=== PATIENT | male | born 1970 | race Caucasian/White ===

== ENCOUNTER 2021-06-05 11:46 | Inpatient (IN) | payer BC, OTHER ==
[2021-06-05] MEDS ORDERED: LORazepam 2 MG/ML SDV VIAL ONE (11:59)
[2021-06-05] MEDS ORDERED: DEXTROSE 50%-WATER 25 GM/50 ML DISP.SYRIN ONE (12:03)
[2021-06-05] MEDS ORDERED: ACETAMINOPHEN INJECTION 100 ML IVPB ONE (12:10)
[2021-06-05] MEDS ORDERED: NOREPINEPHRINE BITARTRATE 4 MG/4 ML ML IV ONE (12:11)
[2021-06-05 12:12] VITALS: BMI 28.0
[2021-06-05] MEDS ORDERED: PROPOFOL 1,000,000 MCG/100 ML VIAL ONE (12:13)
[2021-06-05] MEDS ORDERED: CALCIUM CHLORIDE 1 GM/10 ML *DISP.SYRIN ONE (12:15)
[2021-06-05] MEDS: LORazepam 2 MG/ML SDV VIAL IVPUSH ONE ×2 (12:20→15:12)
[2021-06-05] MEDS ORDERED: VANCOMYCIN 1 GM in D5W (PRE-DOCKED) 1,000 MG/250 ML IVPB ONE (12:31)
[2021-06-05] MEDS ORDERED: VANCOMYCIN 1 GRAM (PRE-DOCKED) 1,000 MG/250 ML BAG IVPB ONE (12:31)
[2021-06-05] MEDS ORDERED: PIPERACILLIN/TAZOB 4.5 GM 4.5 GM/100 ML BAG IVPB ONE (12:31)
[2021-06-05] MEDS ORDERED: PIPERACILLIN/TAZOB 4.5 GM 4.5 GM in DEXTROSE 5%-WATER 100 ML IVPB ONE (12:32)
[2021-06-05 12:37] LABS: VENOUS BASE EXCESS -19.7 mmol/L (-2-2); VENOUS O2 SATURATION 94.7 % (70-80); VENOUS PCO2 61.8 mmHg (38-52)
[2021-06-05 12:42] LABS: VENOUS PH 6.933 (7.310-7.410)
[2021-06-05] MEDS ORDERED: SODIUM BICARBONATE 8.4% - 50 ML ONE (12:43)
[2021-06-05 12:52] LABS: URINE APPEARANCE CLOUDY; URINE BILIRUBIN NEGATIVE (NEGATIVE); URINE COLOR YELLOW; URINE GLUCOSE (UA) TRACE (NEGATIVE); URINE KETONE TRACE (NEGATIVE); URINE LEUK ESTERASE NEGATIVE (NEGATIVE); URINE NITRITE NEGATIVE (NEGATIVE); URINE PROTEIN TRACE (NEGATIVE); URINE UROBILINOGEN 0.2 mg/dL (0.2-1.0)
[2021-06-05 13:01] LABS: HEMATOCRIT 33.6 % (35.4-49); HEMOGLOBIN 11.3 GM/dL (11.7-16.9); MCH 32.3 pg (25.7-33.7); MCHC 33.7 g/dl (32.0-35.9); MEAN CELL VOLUME 95.9 fl (80-96); MEAN PLT VOLUME 8.4 fl (7.5-11.1); PLATELET COUNT 122 10^3/uL (134-434); RBC 3.51 M/mm3 (4.00-5.60); RDW 13.9 % (11.9-15.9); WHITE BLOOD COUNT 5.5 K/mm3 (4.0-10.0)
[2021-06-05] MEDS ORDERED: VASOPRESSIN 20 UNITS/ML VIAL IV ONE (13:08)
[2021-06-05 13:10] LABS: URINE BARBITURATES NEGATIVE (NEGATIVE); URINE BENZODIAZEPINES NEGATIVE (NEGATIVE)
[2021-06-05 13:10] LABS: INR 1.13 (0.83-1.09); PROTHROMBIN TIME (PATIENT) 13.6 SEC (9.7-13.0)
[2021-06-05 13:11] LABS: METHADONE, UR NEGATIVE (NEGATIVE); OPIATES, URI NEGATIVE (NEGATIVE); PHENCYCLIDINE,URINE NEGATIVE (NEGATIVE); URINE AMPHETAMINES NEGATIVE (NEGATIVE)
[2021-06-05 13:12] LABS: COCAINE, UR POSITIVE (NEGATIVE)
[2021-06-05 13:12] LABS: ACTIVATED PTT 31.2 SECONDS (25.2-36.5)
[2021-06-05] MEDS ORDERED: VASOPRESSIN 40 UNITS in SODIUM CHLORIDE 98 ML IVPB SCH (13:15)
[2021-06-05 13:20] LABS: CHLORIDE 101 mmol/L (98-107); SODIUM 138 mmol/L (136-145)
[2021-06-05 13:22] LABS: ALBUMIN 2.9 g/dl (3.4-5.0); ANION GAP 18 MMOL/L (8-16); CALCIUM 9.6 mg/dL (8.5-10.1); CO2 20 mmol/L (21-32)
[2021-06-05 13:23] LABS: MAGNESIUM 3.2 mg/dL (1.8-2.4)
[2021-06-05 13:25] LABS: CREATININE 2.4 mg/dL (0.55-1.3); SGOT/AST 80 U/L (15-37); SGPT/ALT 89 U/L (13-61)
[2021-06-05 13:26] LABS: PHOSPHOROUS 6.1 mg/dL (2.5-4.9)
[2021-06-05 13:27] LABS: BILIRUBIN,TOTAL 0.3 mg/dL (0.2-1); TOT PROT 4.9 g/dl (6.4-8.2)
[2021-06-05 13:28] LABS: ALK PHOS 56 U/L (45-117)
[2021-06-05] MEDS ORDERED: NOREPINEPHRINE BITARTRATE 8,000 MCG/500 ML BAG IVPB SCH (13:30)
[2021-06-05 13:47] LABS: LACTIC ACID 15.4 mmol/L (0.4-2.0)
[2021-06-05] MEDS: NOREPINEPHRINE BITARTRATE 16,000 MCG in SODIUM CHLORIDE 484 ML IV SCH (14:00)
[2021-06-05] MEDS: VASOPRESSIN 40 UNITS in SODIUM CHLORIDE 98 ML IVPB SCH (14:00)
[2021-06-05 14:01] LABS: GLUCOSE,RANDOM 479 mg/dL (74-106)
[2021-06-05 17:38] LABS: BLOOD UREA NITROGEN 16.1 mg/dL (7-18); CALCIUM 8.5 mg/dL (8.5-10.1)
[2021-06-05 17:38] LABS: ARTERIAL BLOOD GAS BASE EXCESS -8.8 mmol/L (-2-2)
[2021-06-05 17:39] LABS: MAGNESIUM 3.2 mg/dL (1.8-2.4)
[2021-06-05 17:42] LABS: CREATININE 2.2 mg/dL (0.55-1.3); PHOSPHOROUS 4.3 mg/dL (2.5-4.9)
[2021-06-05 17:42] LABS: ARTERIAL BLOOD GAS pH 7.188 (7.350-7.450)
[2021-06-05 17:43] LABS: ALLENS TEST POSITIVE
[2021-06-05 17:44] LABS: VENT MODE AC; VENT RATE 16
[2021-06-05 17:47] LABS: LACTIC ACID 4.2 mmol/L (0.4-2.0)
[2021-06-05] MEDS: AMPICILLIN NA/SULBACTAM NA 1.5 GM in SODIUM CHLORIDE 100 ML IVPB SCH (19:06)
[2021-06-05] MEDS: HEPARIN NA (PORCINE) 5,000 UNITS/ML 1ML VIAL SQ SCH (22:57)
[2021-06-06] MEDS: AMPICILLIN NA/SULBACTAM NA 1.5 GM in SODIUM CHLORIDE 100 ML IVPB SCH ×2 (01:06→09:23)
[2021-06-06] MEDS ORDERED: PHENYLEPHRINE HCL IV SCH (05:45)
[2021-06-06] MEDS ORDERED: PHENYLEPHRINE NS PREMIX 25,000 MCG/250 ML BAG CVP SCH (05:45)
[2021-06-06] MEDS ORDERED: SODIUM CHLORIDE IV SCH (05:45)
[2021-06-06] MEDS: HEPARIN NA (PORCINE) 5,000 UNITS/ML 1ML VIAL SQ SCH ×3 (06:40→21:27)
[2021-06-06 06:43] LABS: HEMATOCRIT 53.2 % (35.4-49); HEMOGLOBIN 18.3 GM/dL (11.7-16.9); MCH 32.8 pg (25.7-33.7); MCHC 34.4 g/dl (32.0-35.9); MEAN CELL VOLUME 95.1 fl (80-96); MEAN PLT VOLUME 7.3 fl (7.5-11.1); PLATELET COUNT 65 10^3/uL (134-434); RDW 14.6 % (11.9-15.9); WHITE BLOOD COUNT 7.5 K/mm3 (4.0-10.0)
[2021-06-06] MEDS ORDERED: SODIUM CHLORIDE 1,000 ML IV STA (06:50)
[2021-06-06 07:00] LABS: CALCIUM 8.4 mg/dL (8.5-10.1)
[2021-06-06 07:01] LABS: MAGNESIUM 3.2 mg/dL (1.8-2.4)
[2021-06-06 07:04] LABS: CREATININE 2.9 mg/dL (0.55-1.3)
[2021-06-06] MEDS ORDERED: PANTOPRAZOLE SODIUM 40 MG VIAL IVPUSH SCH (10:00)
[2021-06-06] MEDS: NOREPINEPHRINE BITARTRATE 16,000 MCG in SODIUM CHLORIDE 484 ML IV SCH (16:03)
[2021-06-06] MEDS: VASOPRESSIN 40 UNITS in SODIUM CHLORIDE 98 ML IVPB SCH (16:03)
[2021-06-06] MEDS ORDERED: VASOPRESSIN 20 UNITS/ML VIAL IV ONE (19:42)
[2021-06-06 23:55] VITALS: BP 52/34; PULSE 111; TEMP 96.4
== END 2021-06-07 00:51 | disposition expired | DRG 917 ==
LOC: JER 11:46 → JERBED 13:04 → EDBD 13:04 → JICU 14:11
PROVIDERS: ADMIT Internal Medicine Pulmonary Disease; ATTEND Internal Medicine Pulmonary Disease
PROC: 06HN33Z Insertion of Infusion Device into Left Femoral Vein, Percutaneous Approach (ICD-10-PCS; principal; 2021-06-05)
PROC: 0CHY7BZ Insertion of Airway into Mouth and Throat, Via Natural or Artificial Opening (ICD-10-PCS; 2021-06-05)
PROC: 5A1945Z Respiratory Ventilation, 24-96 Consecutive Hours (ICD-10-PCS; 2021-06-05)
PROC: 5A12012 Performance of Cardiac Output, Single, Manual (ICD-10-PCS; 2021-06-05)
DX: T40.5X1A Poisoning by cocaine, accidental (unintentional), initial encounter (principal); G93.6 Cerebral edema; N17.9 Acute kidney failure, unspecified; E87.2 Acidosis; G93.1 Anoxic brain damage, not elsewhere classified; R57.9 Shock, unspecified; I46.9 Cardiac arrest, cause unspecified; R73.9 Hyperglycemia, unspecified; F14.10 Cocaine abuse, uncomplicated; R50.9 Fever, unspecified; R00.0 Tachycardia, unspecified; Y92.89 Other specified places as the place of occurrence of the external cause
CPT/HCPCS: 36415; 36600; 70450-TC; 71045-TC-FY; 71250-TC; 72125-TC; 74176-TC; 80048; 80053; 80307; 81003; 82140; 82550; 82553; 82803; 82962; 83605; 83735; 84100; 84484; 85027; 85610; 85730; 86850; 86900; 86901; 87086; 87804; 93005; 93010; 94002; 99291; 99292; C9803; J1644; U0003; U0005